=== PATIENT | female | born 1945 | race Caucasian/White ===

== ENCOUNTER → 2016-04-09 | Outpatient (CLI) | payer BC ==
[~2016-04-09] MED LIST: ACET-1138 PO; ASPEC81 PO; ASPI-435; BUPR150T7 PO; Bystolic PO; CLB/200 PO; CLB200 PO; CLC100 PO; CLON1TAB3 PO; ESCI10TA17 PO; FOLI1TAB7 PO; HYDR500C3 PO; ONDA8TAB6 PO; OXYSR10 PO; PRLSR20 PO; RXC5 PO; TRAM-10 PO; VSC/5 PO; [UNRECOGNIZED DRUG - CODE] PO; asthmanex
[2016-04-09 13:36] LABS: BASO % 0.4 %; BASO ABS # 0.02 K/uL (0-0.2); EOS % 1.4 %; HEMATOCRIT 37.5 % (37-47); IG% 0.4 %; LYMPH % 17.8 %; LYMPH ABS # 0.91 K/uL (1.2-3.4); MEAN CELL VOLUME 112.3 fL (80-100); MEAN CORPUSCULAR HEMOGLOBIN 38.3 pg (25-34); MEAN CORPUSCULAR HGB CONC 34.1 g/dl (32-36); MEAN PLATELET VOLUME 9.4 fL (7.4-10.4); MONO % 5.7 %; NEUT % 74.3 %; PLATELET COUNT 538 K/uL (130-400); RED BLOOD COUNT 3.34 M/uL (4.2-5.4); WHITE BLOOD COUNT 5.11 K/uL (4.8-10.8)
[2016-04-09 13:49] LABS: PARTIAL THROMBOPLASTIN RATIO 1.2; PROTHROMBIN TIME (PATIENT) 10.4 SECONDS (9.0-12.0)
--- NOTE | 2016-04-09 14:03 | DIAGNOSTIC IMAGING REPORT ---
TWO VIEW CHEST CLINICAL HISTORY: Preoperative examination. FINDINGS: PA and lateral chest radiographs are compared to study dated 01/20/2008. The heart is mildly enlarged and there is atherosclerotic calcification of the thoracic aorta. The pulmonary vasculature is noncongested. There is mild elevation of the right hemidiaphragm and bibasilar atelectasis. The lungs and pleural spaces are otherwise clear. There is no pneumothorax. The skeletal structures are osteopenic. The bony thorax appears intact. IMPRESSION: Mild cardiac enlargement with no active disease in the chest. Electronically signed by: Natan Felix M.D. 04/09/2016 2:01 PM Dictated Date/Time: 04/09/2016 2:01 PM
[2016-04-09 14:04] LABS: BLOOD UREA NITROGEN 20 mg/dl (7-18); BUN/CREATININE RATIO 17.7 (10-20); CALCIUM 9.2 mg/dl (8.5-10.1); CARBON DIOXIDE 28 mmol/L (21-32); CHLORIDE 107 mmol/L (98-107); GLUCOSE 98 mg/dl (70-99); POTASSIUM 4.1 mmol/L (3.5-5.1); SODIUM 142 mmol/L (136-145)
[2016-04-09 14:14] LABS: COMPLETE YES; OVALOCYTES 2+
[2016-04-09 14:26] LABS: ESTIMATED AVERAGE GLUCOSE 82 mg/dl; HA1C FLAG Normal (Normal)
== END | disposition home or self-care (01) ==
LOC: C.RAD 12:53
PROVIDERS: ATTEND Orthopaedic Surgery
DX: Z01.812 Encounter for preprocedural laboratory examination (principal); Z79.899 Other long term (current) drug therapy; I51.7 Cardiomegaly

== ENCOUNTER 2016-04-13 06:57 | Inpatient (IN) | payer BC, OTHER ==
--- NOTE | 2016-04-12 17:45 | HISTORY & PHYSICAL EXAMINATION ---
DATE OF ADMISSION: 04/13/2016 HISTORY OF PRESENT ILLNESS: The patient presents for complaints of ongoing pain attributable to her right knee with severe end-stage tricompartmental degenerative joint disease. She is a 71-year-old white female, 5 feet 1 inch, 185 pounds with complaints of ongoing pain about her right knee. She has been nonresponsive to conservative therapy including physical therapy, anti-inflammatories, relative rest, activity modification and presents for total knee arthroplasty. PAST MEDICAL HISTORY: Significant for hypertension, asthma, anxiety. PAST SURGICAL HISTORY: Otherwise unremarkable. MEDICATIONS: Include Ultram 50 mg p.o. daily, Celebrex in the morning, Wellbutrin-SR 150 mg p.o. q.a.m., Klonopin 1 mg at bedtime. FAMILY HISTORY: Unremarkable and noncontributory. SOCIAL HISTORY: The patient denies history of smoking, drinking, alcohol use or recreational drug use. PAST SURGICAL HISTORY: Significant for colon resection, repair of a torn meniscus and vaginal tubal as well as appendectomy. REVIEW OF SYSTEMS: Otherwise unremarkable. See history of present illness for pertinent positives. PHYSICAL EXAMINATION: GENERAL: Reveals a very pleasant 71-year-old white female with the above findings noted. HEENT: Otherwise unremarkable. HEART: Regular at 72 beats per minute. No murmurs noted. LUNGS: Clear without rales, rhonchi, or wheezes noted. ABDOMEN: Soft, nontender, nondistended. Bowel sounds are present in all 4 quadrants. RECTAL: No rectal examination was performed. MUSCULOSKELETAL: Consistent with that of severe end-stage, right knee. ASSESSMENT: End-stage degenerative joint disease. PLAN: Total knee arthroplasty, postoperative pain management, DVT prophylaxis, antibiotics as necessary.
[~2016-04-13] VITALS: Ht 154.9 cm; Wt 83.9 kg
[2016-04-13] VITALS (8 sets, daily range): BP systolic 95–149; BP diastolic 59–81; PULSE 72–94; TEMP 36.6–37; O2SAT 92–98; Ht 154.9 cm; Wt 83.9 kg
[~2016-04-13 06:57] MED LIST changes: -ACET-1138 PO; +ACETAMINOPHEN 500 MG TAB PO SCH; -ASPEC81 PO; -ASPI-435; +BUPIVACAINE 0.25% 30 ML VIAL ONE; +BUPIVACAINE 0.5 % 5 MG/1 ML PF 10ML VIAL ONE; +BUPIVACAINE LIPOSOME 266 MG, BUPIVACAINE/EPINEPHRINE INJ 50 ML, SODIUM CHLORIDE 0.9% PF... INFIL SCH; -BUPR150T7 PO; +CEFAZOLIN 2000 MG/60 ML D5W 60 ML IV SCH; -CLB/200 PO; -CLB200 PO; -CLC100 PO; -CLON1TAB3 PO; +CeleBREX 200 MG CAP PO SCH; +DEXAMETHASONE 4 MG TAB PO SCH; -ESCI10TA17 PO; -FOLI1TAB7 PO; +GABAPENTIN 300 MG CAP PO SCH; -HYDR500C3 PO; +LACTATED RINGER'S 1000ML 1,000 ML IV SCH; -ONDA8TAB6 PO; -OXYSR10 PO; +PATIENT'S HEIGHT AND/OR WEIGHT NEEDED SCH; -RXC5 PO; -VSC/5 PO; -asthmanex
--- NOTE | 2016-04-13 07:13 | History & Physical Bridge Note ---
H&P Re-Evaluation Bridge Note: I have examined the patient, reviewed the History & Physical and in the interval since the performance of the History & Physical I have noted the following changes of clinical significance: No changes noted
[2016-04-13] MEDS ORDERED: MIDAZOLAM HCL 1 MG/ML 2ML VIAL ONE ×3 (07:48→09:57)
[2016-04-13] MEDS ORDERED: FENTANYL CITRATE INJ 50 MCG/1 ML 2 ML VIAL ONE (07:48)
[2016-04-13] MEDS ORDERED: VSC/5 PO (07:57)
[2016-04-13] MEDS ORDERED: asthmanex (08:03)
[2016-04-13] MEDS ORDERED: BUPR150T7 PO (08:03)
[2016-04-13] MEDS ORDERED: HYDR500C3 PO (08:03)
[2016-04-13] MEDS ORDERED: FOLI1TAB7 PO (08:03)
[2016-04-13] MEDS ORDERED: CLON1TAB3 PO (08:03)
[2016-04-13] MEDS ORDERED: ESCI10TA17 PO (08:03)
[2016-04-13 08:04] LABS: HEMATOCRIT 35.4 % (37-47); MEAN CELL VOLUME 111.7 fL (80-100); MEAN CORPUSCULAR HEMOGLOBIN 37.9 pg (25-34); MEAN PLATELET VOLUME 9.1 fL (7.4-10.4); PLATELET COUNT 531 K/uL (130-400); RED BLOOD COUNT 3.17 M/uL (4.2-5.4); WHITE BLOOD COUNT 4.34 K/uL (4.8-10.8)
[2016-04-13 08:09] LABS: MEAN CORPUSCULAR HGB CONC 33.9 g/dl (32-36)
[2016-04-13] MEDS ORDERED: ASPI-435 (08:31)
[2016-04-13] MEDS ORDERED: CLB/200 PO (08:53)
[2016-04-13] MEDS ORDERED: NURSING VERBAL MED ORDER STA (09:00)
[2016-04-13] MEDS ORDERED: FAMOTIDINE 20 MG TAB ONE (09:07)
[2016-04-13] MEDS ORDERED: METOCLOPRAMIDE HCL 10 MG TAB PO ONE (09:07)
[2016-04-13] MEDS ORDERED: LACTATED RINGER'S 1000ML 1,000 ML IV PRN (09:10)
[2016-04-13] MEDS ORDERED: ONDANSETRON INJ 2 MG/ML 2 ML VIAL IV PRN (09:15)
[2016-04-13] MEDS ORDERED: FENTANYL CITRATE INJ 50 MCG/1 ML 2 ML VIAL IV PRN (09:15)
[2016-04-13] MEDS ORDERED: ORTHO JOINT ANESTHETIC ONE (09:26)
[2016-04-13] MEDS ORDERED: ROPIVACAINE 5MG/ML 30 ML 150 MG, BUPIVACAINE/EPINEPHR 0.5% MPF 30 ML, KETOROLAC TROMETH... INFIL SCH ×7 (09:30)
[2016-04-13] MEDS ORDERED: NEBIVOLOL HCL 5 MG TAB PO ONE (09:30)
[2016-04-13] MEDS ORDERED: NURSING VERBAL MED ORDER ONE (10:15)
[2016-04-13] MEDS ORDERED: PROPOFOL IV EMULSION 10 MG/ML 20 ML VIAL IV ONE (10:17)
[2016-04-13] MEDS ORDERED: POVIDONE-IODINE OP SOLN 30 ML BTL TOP ONE (10:30)
[2016-04-13] MEDS ORDERED: BACITRACIN 50000 UNIT VIAL IR ONE (10:30)
--- NOTE | 2016-04-13 10:47 | [facility] Post Operative Brief Note ---
Immediate Operative Summary Operative Date Apr 13, 2016. Pre-Operative Diagnosis Right knee degenerative joint disease Post-Operative Diagnosis Right knee degenerative joint disease Procedure(s) Performed Right Total Knee Arthroplasty Cemented Surgeon Dr. Jonh Cruz Hearing Aid Consultant Surgeon(s) Richard West PA-C Estimated Blood Loss 10 ml Findings severe djd rt knee Specimens A. right knee bone and tissue Complication(s) None Disposition Recovery Room / PACU
--- NOTE | 2016-04-13 11:07 | OPERATIVE REPORT ---
DATE OF OPERATION: 04/13/2016 PREOPERATIVE DIAGNOSIS: Severe end-stage tricompartmental degenerative joint disease, right knee. POSTOPERATIVE DIAGNOSIS: Same. PROCEDURE: Right total knee arthroplasty utilizing Journey II nonblock total knee arthroplasty, size 3 femur, 3 tibia, 11 poly, 29 round patella. SURGEON: Dr. Cruz. GAS APPLIANCE REPAIRER: Richard West, who was necessary for prepping, draping, retraction, and wound closure of deep fascia, subQ, and skin and was necessary for the case. ESTIMATED BLOOD LOSS: 10 mL. COMPLICATIONS: None. HISTORY OF PRESENT ILLNESS: The patient is a 71-year-old white female who presents after failing attempts at conservative management for right total knee arthroplasty. OPERATION AND FINDINGS: PROCEDURE: The patient was properly prepped and draped in supine position for total knee arthroplasty after identifying the appropriate surgical site. An anterior midline incision was made through the subcutaneous tissues down to the region of the extensor mechanism. A medial parapatellar incision was subsequently made. Meticulous hemostasis was obtained and performed at all times. The patella having been subluxed lateralward, medial and lateral meniscal remnants were excised. The patellar cut was then initially made and was sized to the appropriate size. After subluxing the tibia forward the appropriate meniscal fragments having been removed the distal femur was then cut first utilizing a Hawk \T\ Nephew Journey II nonblock. The distal femoral cuts and chamfer cuts were all made under direct visualization and the proximal tibial osteotomy cut was also made utilizing Hawk \T\ Nephew Journey II nonblock and checked with an extramedullary guide. The appropriate trial components on the femur and tibia were placed. Appropriate trial spacers were used to check flexion and extension gaps. With flexion and extension gaps being equal, the components were then subsequently after thorough irrigation and debridement lavage components were then subsequently cemented in the following order: size 3 femur, 3 tibia, 11 poly and 29 round patella. Exparel was used for intraoperative anesthesia, the medial parapatellar incision was closed utilizing #1 Vicryl, subQ was closed with 2-0 Vicryl, skin was closed with skin clips. A sterile compression dressing was placed. The patient was taken to recovery room in stable condition. Due to the complex nature of the procedure, the entire surgery was performed with the operational assistance of Richard West PA-C. The esl instructional assistant, under direct supervision, was involved in the actual performance of all aspects of the surgical procedure including hemostasis, tissue retraction and incision, instrument management, patient positioning, and wound closure. I attest to the content of the Intraoperative Record and any orders documented therein. Any exceptio ns are noted below.
[2016-04-13] MEDS ORDERED: ALUMINUM/MAGNESIUM/SIMETH (MAALOX MAX) 30 ML UDC PO PRN (11:30)
[2016-04-13] MEDS ORDERED: MAGNESIUM HYDROXIDE SUSP 30 ML UDC PO PRN (11:30)
[2016-04-13] MEDS ORDERED: MoRPHine SULFATE 2 MG/ML CARP IV PRN (11:30)
[2016-04-13] MEDS ORDERED: SOD PHOSPHATE/SOD BIPHOSPHATE ENEMA 132 ML BTL PR PRN (11:30)
[2016-04-13] MEDS ORDERED: BISACODYL 10 MG SUPP PR PRN (11:30)
--- NOTE | 2016-04-13 12:12 | DIAGNOSTIC IMAGING REPORT ---
TWO VIEWS RIGHT KNEE CLINICAL HISTORY: Postoperative examination. FINDINGS: AP and crosstable lateral portable views of the right knee are obtained. A right knee arthroplasty is in near anatomic alignment. There has been undersurface remodeling of the patella. No acute fracture is seen. There are expected postoperative changes around the knee including skin clips, a surgical drain, soft tissue edema, and subcutaneous gas. IMPRESSION: Expected postoperative changes status post right knee arthroplasty. No acute fracture is seen. Electronically signed by: Natan Felix M.D. 04/13/2016 12:10 PM Dictated Date/Time: 04/13/2016 12:10 PM
--- NOTE | 2016-04-13 12:20 | Anesthesiology Progress Note ---
Anesthesia Post Op Note Date & Time Apr 13, 2016 at 12:19 Vital Signs Pain Intensity: 0 Vital Signs Past 12 Hours Date Time Temp Pulse Resp B/P Pulse Ox O2 Delivery O2 Flow Rate FiO2 04/13/16 12:10 36.5 73 20 120/64 97 Nasal Cannula 2 04/13/16 12:00 65 16 115/71 98 Nasal Cannula 2 04/13/16 11:50 72 16 120/61 97 Nasal Cannula 2 04/13/16 11:40 76 16 114/59 98 Nasal Cannula 2 04/13/16 11:30 78 16 111/64 94 Nasal Cannula 2 04/13/16 11:24 36.7 78 16 119/61 96 Nasal Cannula 2 04/13/16 08:03 36.9 80 20 149/80 94 Room Air Notes Mental Status: alert / awake / arousable, participated in evaluation Pt Amnestic to Procedure: Yes Nausea / Vomiting: adequately controlled Pain: adequately controlled Airway Patency, RR, SpO2: stable & adequate BP & HR: stable & adequate Hydration State: stable & adequate Neuraxial Anesthesia: was administered, sensory block is resolving Anesthetic Complications: no major complications apparent
[2016-04-13] MEDS: TRANEXAMIC ACID AMP 1,000 MG in NSS 100ML IV SCH (13:34)
[2016-04-13] MEDS ORDERED: MoRPHine SULFATE 4 MG/ML 1 ML CARP\\VIAL IV PRN (13:45)
[2016-04-13] MEDS ORDERED: MoRPHine SULFATE 10 MG/ML CARP/VIAL IV PRN (13:45)
[2016-04-13] MEDS: D5W AND 1/2NSS + 20MEQ KCL 1,000 ML IV SCH ×2 (13:53→23:21)
[2016-04-13] MEDS: ACETAMINOPHEN 500 MG TAB PO SCH ×2 (13:54→21:39)
[2016-04-13] MEDS: VESICARE - ORDER AWAITING ACTION SCH (15:14)
[2016-04-13] MEDS: CEFAZOLIN IV 2,000 MG in DEXTROSE 5% 50ML 50 ML IV SCH (17:48)
[2016-04-13] MEDS: OXYCODONE HCL IR 5 MG TAB (IMMEDIATE RELEASE) PO PRN (19:09)
[2016-04-13] MEDS: ASPIRIN 81 MG ECTAB PO SCH (20:58)
[2016-04-13] MEDS: CLONAZEPAM 1 MG TAB PO SCH (20:58)
[2016-04-13] MEDS: DOCUSATE SODIUM 100 MG CAP PO SCH (20:58)
[2016-04-13] MEDS: OXYCODONE HCL 10 MG TABCR (OXYCONTIN) PO SCH (20:59)
[2016-04-13] MEDS: CeleBREX 200 MG CAP PO SCH (20:59)
[2016-04-13] MEDS: SENNA 8.6 MG TAB PO SCH (20:59)
[2016-04-14] MEDS: CEFAZOLIN IV 2,000 MG in DEXTROSE 5% 50ML 50 ML IV SCH (02:01)
[2016-04-14] MEDS: OXYCODONE HCL IR 5 MG TAB (IMMEDIATE RELEASE) PO PRN ×4 (02:07→23:22)
[2016-04-14 03:55] VITALS: BP 107/69; PULSE 79; TEMP 36.7; O2SAT 94
[2016-04-14] MEDS: ACETAMINOPHEN 500 MG TAB PO SCH ×3 (05:26→21:28)
[2016-04-14 05:49] LABS: HEMATOCRIT 28.9 % (37-47); MEAN CORPUSCULAR HGB CONC 33.9 g/dl (32-36); MEAN PLATELET VOLUME 9.2 fL (7.4-10.4); PLATELET COUNT 495 K/uL (130-400); RED BLOOD COUNT 2.58 M/uL (4.2-5.4); WHITE BLOOD COUNT 7.03 K/uL (4.8-10.8)
[2016-04-14 05:58] LABS: PROTHROMBIN TIME (PATIENT) 10.4 SECONDS (9.0-12.0)
[2016-04-14 06:25] LABS: BUN/CREATININE RATIO 10.4 (10-20); CALCIUM 8.3 mg/dl (8.5-10.1); CREATININE 0.97 mg/dl (0.60-1.20); POTASSIUM 4.1 mmol/L (3.5-5.1)
--- NOTE | 2016-04-14 07:06 | Orthopedic Progress Note ---
Orthopedic Progress Note Date of Service Apr 14, 2016. Subjective Post OP Day: 1 (s/p Right TKA) Reports: feeling well, pain controlled w PO medications, Denies: SOB, calf pain , chest pain, complaints, light headedness, nausea / vomiting Objective calves soft nontender, N/V intact, capillary refill less than 2 sec., dressing C /D/I, A&O x3, toes mobile, hemovac drainage (100cc/8 hours) Date Time Temp Pulse Resp B/P Pulse Ox O2 Delivery O2 Flow Rate FiO2 04/14/16 03:55 36.7 79 18 107/69 94 Room Air 04/13/16 23:40 36.7 94 18 136/79 95 Room Air 04/13/16 23:20 Room Air 04/13/16 18:58 37.0 94 16 120/67 92 Room Air 04/13/16 16:00 36.6 83 16 95/59 98 Nasal Cannula 2.0 04/13/16 15:15 Nasal Cannula 2.0 04/13/16 15:04 37.0 85 16 107/61 96 2.0 04/13/16 14:13 36.7 82 16 103/64 98 3.0 04/13/16 13:30 72 16 104/68 96 2.0 04/13/16 13:00 37.0 77 14 144/81 97 Nasal Cannula 2.0 04/13/16 13:00 Nasal Cannula 2.0 04/13/16 13:00 Nasal Cannula 2.0 04/13/16 12:30 36.5 69 20 120/61 96 Nasal Cannula 2 04/13/16 12:20 36.5 71 20 106/61 96 Nasal Cannula 2 04/13/16 12:10 36.5 73 20 120/64 97 Nasal Cannula 2 04/13/16 12:00 65 16 115/71 98 Nasal Cannula 2 04/13/16 11:50 72 16 120/61 97 Nasal Cannula 2 04/13/16 11:40 76 16 114/59 98 Nasal Cannula 2 04/13/16 11:30 78 16 111/64 94 Nasal Cannula 2 04/13/16 11:24 36.7 78 16 119/61 96 Nasal Cannula 2 04/13/16 08:03 36.9 80 20 149/80 94 Room Air Laboratory Results 24 Hours: Test 04/13/16 07:52 1/11/17 05:13 Hematocrit 35.4 % 28.9 % Hemoglobin 12.0 g/dL 9.8 g/dL Prothromb Time International Ratio 1.0 Prothrombin Time 10.4 SECONDS Assessment & Plan Assessment: POD #1 s/p right tka -pt/ot -dvt proph with allie/scd/asa -silverlon dressing -plan for d/c home with HHPT when stable Discharge Planning Discharge Planning: home with home health DVT Prophylaxis: TEDs, SCDs, ASA Therapy: Physical Therapy
[2016-04-14] MEDS: VESICARE - ORDER AWAITING ACTION SCH ×3 (07:24→15:18)
--- NOTE | 2016-04-14 07:50 | Discharge Instructions ---
Discharge Instructions Admission Reason for Admission: Right Knee Degenerative Joint Disease Discharge Discharge Diagnosis / Problem: right total knee replacement Discharge Goals Goal(s): Decrease discomfort, Improve function, Increase independence Activity Recommendations Activity Limitations: as noted below Weightbearing Status: Right weightbearing (as tolerated) . Instructions / Follow-Up Instructions / Follow-Up ACTIVITY RECOMMENDATIONS: SELF CARE INSTRUCTIONS AFTER TOTAL KNEE REPLACEMENT A. You may need to continue a physical therapy program after discharge from the hospital. There are several options available to you. Your doctor will assist you in selecting the best one for you. 1. An out-patient facility 2 to 3 times a week for therapy or home therapy. 2. Continue working on all exercises taught to you in the hospital. Your goals should be to increase bending of your knee to 90 degrees and beyond and to fully straighten your knee. B. You may progress at your own pace from walking with a walker or crutches to a cane; then to no assistive devices. C. Make walking a part of your daily routine. Be up as much as comfortable with rest periods throughout the day. Rest with leg elevation is very important. Use the ice wrap frequently for the first 3-4 weeks. D. There are no restrictions on activities. You may ride in a car, shop, participate in security messenger and all social activities. E. Wear the long elastic stockings (HARINI hose) 20 hours a day for 2 weeks after surgery. They can be removed several times a day for laundering and for a bath. F. You may shower, no tub baths until cleared by your doctor. SPECIAL CARE INSTRUCTIONS: VERY IMPORTANT TO READ AND REVIEW A. There are a few signs you need to watch for after you are home. Call [facility] [place] if you notice any of the followin. Increased severe knee pain. Some pain is expected especially when you exercise. 2. Increased swelling in your leg or knee; pain or swelling of the calf muscle in either lower leg. 3. Any fluid drainage from the incision. 4. Shortness of breath or chest pain. B. Please call [facility] [place] at if you have any concerns or questions about your operation or recovery. The doctor or his nurse will return your call promptly. C. You must take antibiotics before dental work, bladder, bowel or other surgery. Your doctor will provide you with a permanent care to carry describing this precaution. IMPORTANT: * REMEMBER TO TAKE ASPIRIN, 81 MG, TWICE DAILY FOR 4 WEEKS UNLESS OTHERWISE DIRECTED. THIS IS YOUR BLOOD THINNER. * HIGH RISK PATIENTS MAY BE PRESCRIBED A STRONGER BLOOD THINNER. THIS WILL BE PROVIDED AT DISCHARGE. * CALL IF INCREASED PAIN, REDNESS, DRAINAGE OR FEVER GREATER THAT 101. * WEAR HARINI HOSE 20 HOURS PER DAY FOR 2 WEEKS. * YOU MAY HAVE A LARGE BAND-AID LIKE DRESSING (SILVERON). THIS WILL REMAIN ON YOUR INCISION FOR 7 DAYS, THEN CAN BE REMOVED. IF INCISION IS LEAKING THROUGH DRESSING, CALL THE OFFICE . FOLLOW UP VISIT: If appointment is not already scheduled: Please call [facility] [place] to make a follow-up appointment for 2 weeks after your surgery at . Current Hospital Diet Patient's current hospital diet: Regular Diet Discharge Diet Recommended Diet: Regular Diet Procedures Procedures Performed: Right Total Knee Arthroplasty Cemented Pending Studies Studies pending at discharge: no Laboratory Results Hemoglobin A1c Test 04/09/16 13:05 Range/Units Estimated Average Glucose 82 mg/dl Hemoglobin A1c 4.5 4.5-5.6 % Medical Emergencies . Who to Call and When: Medical Emergencies: If at any time you feel your situation is an emergency, please call [phone] immediately. . Non-Emergent Contact Non-Emergency issues call your: Primary Care Provider, Surgeon . "Provider Documentation" section prepared by Richard West. VTE Core Measure Inpt VTE Proph given/why not?: Other Anticoagulation (ASA 81mg po bid x 1month) , T.E.D. Stockings, SCD's
[2016-04-14 07:58] VITALS: BP 111/69; PULSE 62; TEMP 36.6; O2SAT 96
[2016-04-14] MEDS: D5W AND 1/2NSS + 20MEQ KCL 1,000 ML IV SCH (08:27)
[2016-04-14] MEDS: MULTIVITAMIN TAB PO SCH (08:58)
[2016-04-14] MEDS: BuPROPion SR 150 MG TABCR PO SCH (08:58)
[2016-04-14] MEDS: ASPIRIN 81 MG ECTAB PO SCH ×2 (08:58→20:51)
[2016-04-14] MEDS: NEBIVOLOL HCL 5 MG TAB PO SCH (08:58)
[2016-04-14] MEDS: PANTOprazole SOD 40 MG TAB PO SCH (08:58)
[2016-04-14] MEDS: ESCITALOPRAM OXALATE 10 MG TAB PO SCH (08:58)
[2016-04-14] MEDS: DOCUSATE SODIUM 100 MG CAP PO SCH ×2 (08:58→20:46)
[2016-04-14] MEDS: OXYCODONE HCL 10 MG TABCR (OXYCONTIN) PO SCH ×2 (08:59→20:52)
[2016-04-14] MEDS: CeleBREX 200 MG CAP PO SCH ×2 (08:59→20:52)
[2016-04-14] MEDS ORDERED: HYDROXYUREA 500 MG CAP PO SCH ×2 (09:00→21:00)
[2016-04-14] MEDS ORDERED: NURSING VERBAL MED ORDER ONE ×2 (09:15→21:15)
--- NOTE | 2016-04-14 10:13 | Anesthesiology Progress Note ---
Anesthesia Post Op Note Date & Time Apr 14, 2016 at 10:12 Vital Signs Pain Intensity: 8.0 Vital Signs Past 12 Hours Date Time Temp Pulse Resp B/P Pulse Ox O2 Delivery O2 Flow Rate FiO2 04/14/16 07:58 36.6 62 16 111/69 96 Room Air 04/14/16 07:35 Room Air 04/14/16 03:55 36.7 79 18 107/69 94 Room Air 04/13/16 23:40 36.7 94 18 136/79 95 Room Air 04/13/16 23:20 Room Air Notes Mental Status: alert / awake / arousable, participated in evaluation Pt Amnestic to Procedure: Yes Nausea / Vomiting: adequately controlled Pain: adequately controlled Airway Patency, RR, SpO2: stable & adequate BP & HR: stable & adequate Hydration State: stable & adequate Neuraxial Anesthesia: sensory block resolved Anesthetic Complications: no major complications apparent
[2016-04-14 11:20] VITALS: BP 122/62; PULSE 61; TEMP 36.4; O2SAT 96
[2016-04-14 15:00] VITALS: BP 112/62; PULSE 60; TEMP 37; O2SAT 94
[2016-04-14] MEDS: SENNA 8.6 MG TAB PO SCH (20:46)
[2016-04-14] MEDS: CLONAZEPAM 1 MG TAB PO SCH (20:52)
[2016-04-14] MEDS ORDERED: HYDROXYUREA 500 MG CAP PO STA (21:17)
[2016-04-14 22:52] VITALS: BP 102/65; PULSE 62; TEMP 36.9; O2SAT 95
[2016-04-15] MEDS: ACETAMINOPHEN 500 MG TAB PO SCH ×3 (05:28→21:48)
[2016-04-15] MEDS: VESICARE - ORDER AWAITING ACTION SCH ×3 (06:56→16:39)
--- NOTE | 2016-04-15 06:56 | Orthopedic Progress Note ---
Orthopedic Progress Note Date of Service Apr 15, 2016. Subjective Post OP Day: 2 Reports: feeling well, pain controlled w PO medications, Denies: SOB, calf pain , chest pain, complaints, light headedness, nausea / vomiting Objective calves soft nontender, N/V intact, capillary refill less than 2 sec., dressing C /D/I (silverlon intact), A&O x3, toes mobile Date Time Temp Pulse Resp B/P Pulse Ox O2 Delivery O2 Flow Rate FiO2 04/14/16 23:13 Room Air 04/14/16 22:52 36.9 62 16 102/65 95 Room Air 04/14/16 15:15 Room Air 04/14/16 15:00 37.0 60 16 112/62 94 Room Air 04/14/16 11:20 36.4 61 16 122/62 96 Room Air 04/14/16 07:58 36.6 62 16 111/69 96 Room Air 04/14/16 07:35 Room Air Assessment & Plan Assessment: POD #2 s/p right tka -pt/ot -dvt proph with allie/scd/asa -silverlon dressing -plan for d/c home with HHPT when stable Plan: [id number] ADDENDUM: Pt c/o uncontrolled pain in the knee which is her biggest complaint. She also states she did not feel well earlier and had an episode of diarrhea. The last time was around 11AM this morning. She is feeling better now in that aspect but she feels that her pain is not controlled at this time. We will plan on adjusting her pain meds and cancelling her discharge order. Will recheck labs as well. TB Discharge Planning Discharge Planning: home with home health DVT Prophylaxis: TEDs, SCDs, ASA Therapy: Physical Therapy
[2016-04-15] MEDS ORDERED: ACET-1138 PO (07:04)
[2016-04-15] MEDS ORDERED: ASPEC81 PO (07:05)
[2016-04-15] MEDS ORDERED: ONDA8TAB6 PO (07:05)
[2016-04-15] MEDS ORDERED: OXYSR10 PO (07:05)
[2016-04-15] MEDS ORDERED: CLC100 PO (07:05)
[2016-04-15] MEDS ORDERED: RXC5 PO (07:05)
[2016-04-15] MEDS ORDERED: CLB200 PO (07:05)
[2016-04-15 07:08] VITALS: BP 102/60; PULSE 72; TEMP 36.4; O2SAT 94
--- NOTE | 2016-04-15 07:13 | Discharge Summary ---
Orthopedic Discharge Summary Admission Date/Reason Apr 13, 2016 at 08:24 Right Knee Degenerative Joint Disease. Discharge Date/Disposition Apr 15, 2016 Home with services Diagnosis Principal Diagnosis: s/p Right TKA Procedure(s) Performed Right Total Knee Replacement Consultations NONE Medication Reconciliation New Medications: Ondansetron Hcl (Zofran) 8 Mg Tab 8 MG PO Q8 PRN for Nausea, #20 TAB Acetaminophen (Tylenol Extra Strength) 500 Mg Tab 1000 MG PO Q8, #126 TAB Aspirin (Aspirin EC Low Dose) 81 Mg Ectab 81 MG PO BID for 30 Days Celecoxib (Celebrex) 200 Mg Cap 200 MG PO BID, #60 CAP Docusate Sodium (Docusate Sodium) 100 Mg Cap 100 MG PO BID for 15 Days, #30 CAP Oxycodone HCl (Oxycontin) 10 Mg Tabcr 10 MG PO Q12, #20 Oxycodone HCl (Oxycodone HCl) 5 Mg Tab 5-10 MG PO Q4H PRN for Pain, #90 TAB Continued Medications: Bupropion Hcl (Wellbutrin Sr) 150 Mg Tab 150 MG PO, TAB Clonazepam (Klonopin) 1 Mg Tab 1 MG PO HS, TAB Escitalopram (Lexapro) 10 Mg Tab 10 MG PO DAILY, TAB Folic Acid (Folvite) 1 Mg Tab 1 TAB PO DAILY for 90 Days, #90 TAB 1 Refill Hydroxyurea (Hydrea Cap) 500 Mg Cap 500 MG PO DAILY, CAP Omeprazole (Prilosec) 20 Mg Capcr 20 MG PO DAILY, 0 Refills Solifenacin (Vesicare) 5 Mg Tab 5 MG PO DAILY, TAB [asthmanex] () 1 PUFF DAILY [Bystolic] () 5 MG PO DAILY, 0 Refills Discontinued Medications: Aspirin (Aspirin 81) 81 Mg Tab DAILY Celecoxib (CeleBREX) 200 Mg Cap 1 CAP PO DAILY for 30 Days, #30 CAP 2 Refills Tramadol (Ultram) 50 Mg Tab 50 MG PO Q4HR, 0 Refills PRN PAIN Admission Physical Exam As per Admitting History & Physical. Hospital Course Patient was a same day admission after undergoing a successful right TKA. she tolerated the procedure well. Post-operatively, her activity was progressed and well tolerated. Please refer to daily progress notes and PT notes for complete details. After exam on 04/15/16, patient felt to be stable for discharge home with home health PT. Patient will f/u in the office in 2 weeks for further evaluation including x-rays and incision check, sooner if having any issues or concerns. Below are pertinent labs/studies during their hospital stay: Last Resulted CBC 04/14/16 05:13 Last Resulted BMP 04/14/16 05:13 Last Vital Signs Documentation Date Time Temp Pulse Resp B/P Pulse Ox O2 Delivery O2 Flow Rate FiO2 04/15/16 07:08 36.4 72 17 102/60 94 Room Air 04/13/16 16:00 2.0 Discharge Instructions ACTIVITY RECOMMENDATIONS: SELF CARE INSTRUCTIONS AFTER TOTAL KNEE REPLACEMENT A. You may need to continue a physical therapy program after discharge from the hospital. There are several options available to you. Your doctor will assist you in selecting the best one for you. 1. An out-patient facility 2 to 3 times a week for therapy or home therapy. 2. Continue working on all exercises taught to you in the hospital. Your goals should be to increase bending of your knee to 90 degrees and beyond and to fully straighten your knee. B. You may progress at your own pace from walking with a walker or crutches to a cane; then to no assistive devices. C. Make walking a part of your daily routine. Be up as much as comfortable with rest periods throughout the day. Rest with leg elevation is very important. Use the ice wrap frequently for the first 3-4 weeks. D. There are no restrictions on activities. You may ride in a car, shop, participate in gear generator set up operator and all social activities. E. Wear the long elastic stockings (HARINI hose) 20 hours a day for 2 weeks after surgery. They can be removed several times a day for laundering and for a bath. F. You may shower, no tub baths until cleared by your doctor. SPECIAL CARE INSTRUCTIONS: VERY IMPORTANT TO READ AND REVIEW A. There are a few signs you need to watch for after you are home. Call [facility] [place] if you notice any of the followin. Increased severe knee pain. Some pain is expected especially when you exercise. 2. Increased swelling in your leg or knee; pain or swelling of the calf muscle in either lower leg. 3. Any fluid drainage from the incision. 4. Shortness of breath or chest pain. B. Please call [facility] at if you have any concerns or questions about your operation or recovery. The doctor or his nurse will return your call promptly. C. You must take antibiotics before dental work, bladder, bowel or other surgery. Your doctor will provide you with a permanent care to carry describing this precaution. IMPORTANT: * REMEMBER TO TAKE ASPIRIN, 81 MG, TWICE DAILY FOR 4 WEEKS UNLESS OTHERWISE DIRECTED. THIS IS YOUR BLOOD THINNER. * HIGH RISK PATIENTS MAY BE PRESCRIBED A STRONGER BLOOD THINNER. THIS WILL BE PROVIDED AT DISCHARGE. * CALL IF INCREASED PAIN, REDNESS, DRAINAGE OR FEVER GREATER THAT 101. * WEAR HARINI HOSE 20 HOURS PER DAY FOR 2 WEEKS. * YOU MAY HAVE A LARGE BAND-AID LIKE DRESSING (SILVERON). THIS WILL REMAIN ON YOUR INCISION FOR 7 DAYS, THEN CAN BE REMOVED. IF INCISION IS LEAKING THROUGH DRESSING, CALL THE OFFICE . FOLLOW UP VISIT: If appointment is not already scheduled: Please call [facility] [place] to make a follow-up appointment for 2 weeks after your surgery at .
[2016-04-15] MEDS: DOCUSATE SODIUM 100 MG CAP PO SCH ×2 (08:26→20:56)
[2016-04-15] MEDS: ESCITALOPRAM OXALATE 10 MG TAB PO SCH (08:26)
[2016-04-15] MEDS: MULTIVITAMIN TAB PO SCH (08:27)
[2016-04-15] MEDS: NEBIVOLOL HCL 5 MG TAB PO SCH (08:27)
[2016-04-15] MEDS: PANTOprazole SOD 40 MG TAB PO SCH (08:27)
[2016-04-15] MEDS: OXYCODONE HCL 10 MG TABCR (OXYCONTIN) PO SCH (08:27)
[2016-04-15] MEDS: BuPROPion SR 150 MG TABCR PO SCH (08:27)
[2016-04-15] MEDS: OXYCODONE HCL IR 5 MG TAB (IMMEDIATE RELEASE) PO PRN ×3 (08:28→20:15)
[2016-04-15] MEDS: ASPIRIN 81 MG ECTAB PO SCH ×2 (08:41→21:05)
[2016-04-15] MEDS: CeleBREX 200 MG CAP PO SCH ×2 (08:42→21:06)
[2016-04-15] MEDS ORDERED: HYDROXYUREA 500 MG CAP PO SCH (09:00)
[2016-04-15 09:19] VITALS: BP 102/60; PULSE 72; TEMP 36.4; O2SAT 94
[2016-04-15 11:50] VITALS: BP 115/70; PULSE 73
[2016-04-15] MEDS ORDERED: HYDROmorphone INJ 0.5 MG/0.5 ML SYR IV PRN (14:00)
[2016-04-15 15:20] VITALS: BP 97/62; PULSE 68; TEMP 36.6; O2SAT 94
[2016-04-15] MEDS: SENNA 8.6 MG TAB PO SCH (20:56)
[2016-04-15] MEDS: OXYCODONE HCL 20 MG TABCR (OXYCONTIN) PO SCH (21:05)
[2016-04-15] MEDS: CLONAZEPAM 1 MG TAB PO SCH (21:05)
[2016-04-15] MEDS: HYDROXYUREA 500 MG CAP PO SCH (21:11)
[2016-04-15 22:53] VITALS: BP 111/71; PULSE 75; TEMP 37.2; O2SAT 92
[2016-04-16] MEDS: OXYCODONE HCL IR 5 MG TAB (IMMEDIATE RELEASE) PO PRN ×2 (02:49→08:07)
[2016-04-16] MEDS: ACETAMINOPHEN 500 MG TAB PO SCH ×2 (05:59→21:14)
[2016-04-16 06:10] LABS: MEAN CELL VOLUME 112.4 fL (80-100); MEAN CORPUSCULAR HEMOGLOBIN 38.2 pg (25-34); MEAN CORPUSCULAR HGB CONC 33.9 g/dl (32-36); MEAN PLATELET VOLUME 9.2 fL (7.4-10.4); PLATELET COUNT 543 K/uL (130-400); RED BLOOD COUNT 2.49 M/uL (4.2-5.4)
[2016-04-16 06:45] LABS: BUN/CREATININE RATIO 12.2 (10-20); CALCIUM 8.6 mg/dl (8.5-10.1); CREATININE 1.1 mg/dl (0.60-1.20); POTASSIUM 3.9 mmol/L (3.5-5.1)
[2016-04-16 06:54] VITALS: BP 123/69; PULSE 81; TEMP 36.6; O2SAT 94
--- NOTE | 2016-04-16 06:59 | Orthopedic Progress Note ---
Orthopedic Progress Note Date of Service Apr 16, 2016. Subjective Post OP Day: 3 Reports: feeling well, Denies: SOB, calf pain, chest pain, light headedness, nausea / vomiting Additional Notes: States that her pain is under better control. Feeling better overall. No more episodes of diarrhea since noon yesterday. Objective calves soft nontender, N/V intact, dressing C/D/I, A&O x3, toes mobile Date Time Temp Pulse Resp B/P Pulse Ox O2 Delivery O2 Flow Rate FiO2 04/16/16 06:54 36.6 81 17 123/69 94 Room Air 04/15/16 23:15 Room Air 04/15/16 22:53 37.2 75 16 111/71 92 Room Air 04/15/16 16:00 Room Air 04/15/16 15:20 36.6 68 20 97/62 94 Room Air 04/15/16 11:50 73 04/15/16 09:19 36.4 72 17 94 Room Air 04/15/16 07:33 Room Air 04/15/16 07:08 36.4 72 17 102/60 94 Room Air Laboratory Results 24 Hours: Test 04/16/16 05:00 Hematocrit 28.0 % Hemoglobin 9.5 g/dL Assessment & Plan Assessment: POD #3 Continue PT/OT Plan for dc to home today if pain continues to remain controlled. Inhouse Planning Pain Management: Celebrex, Oxycontin, Dilaudid, PO Tylenol, Oxy IR Discharge Planning Discharge Planning: home with home health Pain Management: Oxycontin, PO Tylenol, Oxy IR DVT Prophylaxis: TEDs, SCDs, ASA Therapy: Physical Therapy
[2016-04-16] MEDS ORDERED: OXYSR10 PO (07:01)
[2016-04-16] MEDS: VESICARE - ORDER AWAITING ACTION SCH ×3 (07:36→14:50)
[2016-04-16] MEDS: BuPROPion SR 150 MG TABCR PO SCH (08:36)
[2016-04-16] MEDS: ASPIRIN 81 MG ECTAB PO SCH ×2 (08:36→21:16)
[2016-04-16] MEDS: NEBIVOLOL HCL 5 MG TAB PO SCH (08:36)
[2016-04-16] MEDS: ESCITALOPRAM OXALATE 10 MG TAB PO SCH (08:36)
[2016-04-16] MEDS: CeleBREX 200 MG CAP PO SCH ×2 (08:36→21:15)
[2016-04-16] MEDS: PANTOprazole SOD 40 MG TAB PO SCH (08:36)
[2016-04-16] MEDS: OXYCODONE HCL 20 MG TABCR (OXYCONTIN) PO SCH (08:36)
[2016-04-16] MEDS: MULTIVITAMIN TAB PO SCH (08:36)
[2016-04-16] MEDS: DOCUSATE SODIUM 100 MG CAP PO SCH ×2 (08:37→21:00)
[2016-04-16] MEDS ORDERED: HYDROCODONE/ACETAMOPHEN 5/325MG TAB PO PRN (11:45)
[2016-04-16 15:29] VITALS: BP 125/69; PULSE 74; TEMP 36.4; O2SAT 93
[2016-04-16] MEDS: ONDANSETRON INJ 2 MG/ML 2 ML VIAL IV PRN (16:40)
[2016-04-16] MEDS: TRAMADOL HCL 50 MG TAB PO PRN ×2 (17:02→21:13)
[2016-04-16] MEDS: SENNA 8.6 MG TAB PO SCH (21:00)
[2016-04-16] MEDS: CLONAZEPAM 1 MG TAB PO SCH (21:13)
[2016-04-16] MEDS: HYDROXYUREA 500 MG CAP PO SCH (21:17)
[2016-04-17] VITALS: BP 98/66; PULSE 87; TEMP 36.8; O2SAT 97
[2016-04-17] MEDS: TRAMADOL HCL 50 MG TAB PO PRN ×3 (03:46→11:59)
[2016-04-17] MEDS: ONDANSETRON INJ 2 MG/ML 2 ML VIAL IV PRN (03:49)
[2016-04-17] MEDS: ACETAMINOPHEN 500 MG TAB PO SCH (06:02)
[2016-04-17 06:50] VITALS: BP 112/71; PULSE 84; TEMP 36.7; O2SAT 94
[2016-04-17] MEDS: VESICARE - ORDER AWAITING ACTION SCH ×2 (06:54)
[2016-04-17 07:38] LABS: HEMATOCRIT 28.3 % (37-47); MEAN CELL VOLUME 114.1 fL (80-100); MEAN CORPUSCULAR HEMOGLOBIN 37.9 pg (25-34); MEAN CORPUSCULAR HGB CONC 33.2 g/dl (32-36); MEAN PLATELET VOLUME 9.1 fL (7.4-10.4); PLATELET COUNT 558 K/uL (130-400); RED BLOOD COUNT 2.48 M/uL (4.2-5.4); WHITE BLOOD COUNT 4.24 K/uL (4.8-10.8)
[2016-04-17] MEDS: DOCUSATE SODIUM 100 MG CAP PO SCH (07:49)
--- NOTE | 2016-04-17 07:51 | Orthopedic Progress Note ---
Orthopedic Progress Note Date of Service Apr 17, 2016. Subjective Post OP Day: 4 Reports: feeling well, Denies: SOB, chest pain, light headedness, nausea / vomiting, pain controlled w PO medications (States the Ultram doesn't seem to be cutting it for pain.) Objective calves soft nontender, N/V intact, capillary refill less than 2 sec., dressing C /D/I, A&O x3, toes mobile Date Time Temp Pulse Resp B/P Pulse Ox O2 Delivery O2 Flow Rate FiO2 04/17/16 06:50 36.7 84 19 112/71 94 Room Air 04/17/16 00:00 36.8 87 16 98/66 97 Room Air 04/16/16 19:15 Room Air 04/16/16 15:29 36.4 74 18 125/69 93 Room Air 04/16/16 08:25 Room Air Laboratory Results 24 Hours: Test 04/17/16 07:05 Hematocrit 28.3 % Hemoglobin 9.4 g/dL Assessment & Plan Assessment: POD #4 right TKA Continue PT/OT Plan for dc to home today if pain continues to remain controlled--Will try Oxy IR on its own since it was previously used with Oxycontin. Inhouse Planning Pain Management: Celebrex, Oxycontin, Dilaudid, PO Tylenol, Oxy IR Discharge Planning Discharge Planning: home with home health Pain Management: Oxycontin, PO Tylenol, Oxy IR DVT Prophylaxis: TEDs, SCDs, ASA Therapy: Physical Therapy
[2016-04-17] MEDS: MULTIVITAMIN TAB PO SCH (08:38)
[2016-04-17] MEDS: NEBIVOLOL HCL 5 MG TAB PO SCH (08:38)
[2016-04-17] MEDS: CeleBREX 200 MG CAP PO SCH (08:38)
[2016-04-17] MEDS: PANTOprazole SOD 40 MG TAB PO SCH (08:38)
[2016-04-17] MEDS: ESCITALOPRAM OXALATE 10 MG TAB PO SCH (08:38)
[2016-04-17] MEDS: OXYCODONE HCL IR 5 MG TAB (IMMEDIATE RELEASE) PO PRN ×2 (08:38→12:39)
[2016-04-17] MEDS: BuPROPion SR 150 MG TABCR PO SCH (08:39)
[2016-04-17] MEDS: ASPIRIN 81 MG ECTAB PO SCH (08:39)
[2016-04-17 11:25] VITALS: BP 112/71; PULSE 84; TEMP 36.7; O2SAT 94
== END 2016-04-17 13:42 | disposition home health service (06) | DRG 470 ==
LOC: ENRESERVDT → ENRESERVTM → C.ACU 06:57 → C.3E 08:24
PROVIDERS: ADMIT Orthopaedic Surgery; ATTEND Orthopaedic Surgery
PROC: 0SRC0J9 Replacement of Right Knee Joint with Synthetic Substitute, Cemented, Open Approach (ICD-10-PCS; principal; 2016-04-13 09:30)
DX: M17.11 Unilateral primary osteoarthritis, right knee (principal); J45.909 Unspecified asthma, uncomplicated; I10 Essential (primary) hypertension; F41.9 Anxiety disorder, unspecified; F32.9 Major depressive disorder, single episode, unspecified; D47.3 Essential (hemorrhagic) thrombocythemia; M54.5 Low back pain; E66.9 Obesity, unspecified; K21.9 Gastro-esophageal reflux disease without esophagitis; K44.9 Diaphragmatic hernia without obstruction or gangrene; R19.7 Diarrhea, unspecified; M79.7 Fibromyalgia; K75.89 Other specified inflammatory liver diseases; G89.18 Other acute postprocedural pain; T42.1X Poisoning by, adverse effect of and underdosing of iminostilbenes; Z79.899 Other long term (current) drug therapy; Z68.35 Body mass index [BMI] 35.0-35.9, adult; Z87.891 Personal history of nicotine dependence; Z79.891 Long term (current) use of opiate analgesic; Z79.1 Long term (current) use of non-steroidal anti-inflammatories (NSAID)

== ENCOUNTER 2017-05-17 12:38 | Day surgery (SDC) | payer BC, OTHER ==
[2017-05-11 15:02] VITALS: BMI 34.0
[~2017-05-17] VITALS: Ht 154.9 cm; Wt 81.8 kg
--- NOTE | 2017-05-17 07:16 | History and Physical ---
History & Physical Date May 17, 2017. Chief Complaint Patient presents a 72-year-old female with some ongoing painful to her left knee she has exam is that of a torn posterior horn medial meniscus plan for arthroscopy and partial medial meniscectomy History of Present Illness Ongoing pain. To her left knee with a exam is a torn posterior horn medial meniscus left knee plans for arthroscopy for partial medial meniscectomy left knee The patient is a 72 year old female with complaints of Past Medical/Surgical History Surgical Problems: (1) S/P TKR (total knee replacement) Additional History Hepatic Disease: No Endocrine Disorder: No Kidney Disease: No Hypertension: Yes Heart Disease: No Bleeding Tendencies: No Infectious Diseases: No Other: asthma Allergies Coded Allergies: Carbamazepine (Unverified Allergy, Mild, LIVER TOXICITY, 05/11/17) Iodine (Unverified Allergy, Mild, UNSTABLE VITALS, 05/11/17) Home Medications Scheduled Aspirin (Aspirin Ec), 81 MG PO QAM Bupropion Hcl (Wellbutrin Sr), 150 MG PO QAM Clonazepam (Klonopin), 1 MG PO HS Folic Acid (Folvite), 1 TAB PO QAM Hydroxyurea (Hydrea), 3 CAP PO 3XWK Hydroxyurea (Hydrea Cap), 2 CAP PO 4XWK Mometasone Furoate (Inhalation (Asmanex Hfa), 1 PUFF INH QAM Nebivolol HCl (Bystolic), 1 TAB PO QAM Omeprazole (Prilosec), 20 MG PO QAM Solifenacin (Vesicare), 5 MG PO QAM Tramadol (Ultram), 50 MG PO BID Scheduled PRN Acetaminophen (Tylenol), 1,000 MG PO Q6H PRN for Pain Albuterol Hfa (Ventolin Hfa), 2-4 PUFFS INH Q6H PRN for SOB/Wheezing Celecoxib (CeleBREX), 200 MG PO DAILY PRN for Pain Physical Examination Skin: warm/dry, no rash Eyes: normal inspection, EOMI, sclerae normal ENT: normal ENT inspection, pharynx normal Head: normocephalic, atraumatic Neck: supple, no adenopathy, trachea midline Respiratory/Chest: lungs clear, normal breath sounds, no respiratory distress Cardiovascular: regular rate, rhythm, no edema, no murmur Abdomen / GI: normal bowel sounds, non tender Back: normal inspection Extremities: + pertinent finding (painful medial joint line left knee with positive Izabel and circumduction findings noted) Diagnosis Patient presents with a torn medial meniscus left knee clinical exam is positive Izabel causes abduction circumduction findings as well as MRI conservative torn posterior horn medial meniscus Plan of Treatment Patient presents with ongoing complaints of pain about the knee left knee involving large muscle conservative therapy presents for arthroscopy arthroscopic partial medial meniscectomy.
[~2017-05-17 12:38] MED LIST changes: +ACET-1256 PO; -ACETAMINOPHEN 500 MG TAB PO SCH; +ASPI81TA28 PO; +ATROPINE SULFATE 0.1 MG/ML 5ML SYR IV PRN; -BUPIVACAINE 0.25% 30 ML VIAL ONE; -BUPIVACAINE 0.5 % 5 MG/1 ML PF 10ML VIAL ONE; -BUPIVACAINE LIPOSOME 266 MG, BUPIVACAINE/EPINEPHRINE INJ 50 ML, SODIUM CHLORIDE 0.9% PF... INFIL SCH; +BUPR150T7 PO; +BYS5 PO; -Bystolic PO; -CEFAZOLIN 2000 MG/60 ML D5W 60 ML IV SCH; +CEFAZOLIN 2000MG IV PUSH 15 ML IV SCH; +CLB/200 PO; +CLON1TAB3 PO; -CeleBREX 200 MG CAP PO SCH; -DEXAMETHASONE 4 MG TAB PO SCH; +EpHEDrine SULFATE INJ 50 MG/ML AMP IV PRN; +FENTANYL CITRATE INJ 50 MCG/1 ML 2 ML VIAL IV PRN; +FOLI1TAB8 PO; -GABAPENTIN 300 MG CAP PO SCH; +HYDR500C PO; +HYDR500C3 PO; +HYDROmorphone INJ 0.5 MG/0.5 ML SYR IV PRN; +LABETALOL HCL IV 5 MG/ML 20ML IV PRN; +MEPERIDINE HCL 25 MG/ML CARP IV PRN; +MOME16.7 INH; +ONDANSETRON INJ 2 MG/ML 2 ML VIAL IV PRN; -PATIENT'S HEIGHT AND/OR WEIGHT NEEDED SCH; +VNTHFA/IN INH; +VSC/5 PO; -[UNRECOGNIZED DRUG - CODE] PO
[2017-05-17 13:05] LABS: BASO % 0.4 %; BASO ABS # 0.02 K/uL (0-0.2); EOS % 0.6 %; EOS ABS # 0.03 K/uL (0-0.5); HEMATOCRIT 34.7 % (37-47); HEMOGLOBIN 11.9 g/dL (12.0-16.0); IG# 0.01 K/uL (0.00-0.02); LYMPH % 26.1 %; LYMPH ABS # 1.39 K/uL (1.2-3.4); MEAN CELL VOLUME 116.1 fL (80-100); MEAN CORPUSCULAR HEMOGLOBIN 39.8 pg (25-34); MEAN PLATELET VOLUME 9.1 fL (7.4-10.4); MONO % 5.8 %; MONO ABS # 0.31 K/uL (0.11-0.59); NEUT % 66.9 %; NEUT ABS # 3.56 K/uL (1.4-6.5); PLATELET COUNT 569 K/uL (130-400); RED CELL DISTRIBUTION WIDTH CV 14.4 % (11.5-14.5); RED CELL DISTRIBUTION WIDTH SD 59.1 fL (36.4-46.3); WHITE BLOOD COUNT 5.32 K/uL (4.8-10.8)
[2017-05-17 13:09] LABS: MEAN CORPUSCULAR HGB CONC 34.3 g/dl (32-36)
[2017-05-17 13:11] VITALS: BP 164/86; PULSE 95; TEMP 36.8; O2SAT 98; Ht 154.9 cm; Wt 81.8 kg
[2017-05-17] MEDS ORDERED: EpINEphrine HCL INJ 1 MG/ML 1ML SYRINGE ONE ×2 (14:05→14:06)
[2017-05-17] MEDS ORDERED: BUPIVACAINE/EPINEPHRINE 0.5% MPF 1:200,000 30 ML VIAL ONE (14:05)
[2017-05-17] MEDS ORDERED: BUPIVACAINE 0.5 % 5 MG/1 ML MPF 30ML VIAL ONE (14:05)
[2017-05-17] MEDS ORDERED: MIDAZOLAM HCL 1 MG/ML 2ML VIAL ONE (14:15)
[2017-05-17] MEDS ORDERED: FENTANYL CITRATE INJ 50 MCG/1 ML 2 ML VIAL ONE ×2 (14:15→15:39)
[2017-05-17] MEDS ORDERED: SODIUM CHLORIDE 0.9% 1000ML 1,000 ML IV SCH (14:34)
--- NOTE | 2017-05-17 14:36 | Discharge Instructions ---
Discharge Instructions Date of Service May 17, 2017. Visit Reason for Visit: Left Knee Other Meniscus Derangements, Unspecified Discharge Discharge Diagnosis / Problem: meniscus tear Discharge Goals Goal(s): Decrease discomfort, Improve function, Increase independence Activity Recommendations Activity Limitations: as noted below Weightbearing Status: Left weightbearing (as tolerated) Anesthesia . Post Anesthesia Instructions: If you have had General Anesthesia or IV Sedation: * Do not drive today. * Resume driving when surgeon permits. * Do not make important decisions or sign legal documents today. * Call surgeon for: 1. Temperature elevations greater than 101 degrees F. 2. Uncontrollable pain. 3. Excessive bleeding. 4. Persistent nausea and vomiting. 5. Medication intolerance (nausea, vomiting or rash). * For nausea and vomiting use only clear liquids such as: tea, soda, bouillon until nausea subsides, then gradually increase diet as tolerated. * If you have any concerns or questions, call your surgeon's office. If physician is unavailable and it is an emergency, call 911 or go to the nearest emergency room. . Instructions / Follow-Up Instructions / Follow-Up ACTIVITY RECOMMENDATIONS: * You may walk on the leg with or without crutches as comfort permits. * Bending of the knee should start at once. * Do not shower for 48 hours following surgery. SPECIAL CARE INSTRUCTIONS: * You may cleanse the skin adjacent to the small wounds with soap and water at the time of the first dressing change. * The application of an ice bag to the front and sides of the knee will decrease swelling and discomfort for the first 48 hours. * The small incisions may be sore and develop bruising. This bruising does not require any special care. SPECIAL PRECAUTIONS: * If you experience unusual pain unrelieved by prescriptions, temperature elevation (100 degrees F. or above) or progressive swelling or bleeding, you should contact our office at for further evaluation. * You may have been prescribed pain medication. If you experience nausea and/or fine skin rash, discontinue this medication and contact our office at for an alternate medication. DRESSING: * Dressing should be comfortable and absorb any leakage of fluid and/or blood. * The dressing may become moist or bloodstained. * Dressing may be removed _24 hours_ after surgery and bandaids placed over the small surgical incisions. If can be removed sooner if it becomes very soiled or loose. * Bandaids may be used over next several days as needed and can be discontinued when there is not further drainage from the wounds. FOLLOW UP VISIT: If appointment is not already scheduled: Please call [facility] to make a follow-up appointment for your surgery at . Diet Recommendations Recommended Home Diet: resume previous diet Pending Studies Studies pending at discharge: no Medical Emergencies . Who to Call and When: Medical Emergencies: If at any time you feel your situation is an emergency, please call 911 immediately. . Non-Emergent Contact Non-Emergency issues call your: Primary Care Provider, Surgeon . . "Provider Documentation" section prepared by Richard West. . [facility] Monitoring Program Search Results: patient reviewed within database, no issues identified
[2017-05-17] MEDS ORDERED: HYDR-5688 PO ×2 (14:38→14:51)
[2017-05-17] MEDS ORDERED: ONDANSETRON INJ 2 MG/ML 2 ML VIAL IV PRN (14:45)
[2017-05-17] MEDS ORDERED: HYDROCODONE/ACETAMIN 5/325MG TAB PO PRN ×2 (14:45)
[2017-05-17] MEDS ORDERED: LIDOCAINE HCL 2% 2 ML VIAL (20MG/ML) ONE (14:59)
[2017-05-17] MEDS ORDERED: PROPOFOL IV EMULSION 10 MG/ML 20 ML VIAL IV ONE (14:59)
[2017-05-17] MEDS ORDERED: ONDANSETRON INJ 2 MG/ML 2 ML VIAL ONE (14:59)
[2017-05-17] MEDS ORDERED: DEXAMETHASONE SOD INJ 4 MG/ML VIAL ONE (14:59)
[2017-05-17] MEDS ORDERED: KETOROLAC TROMETHAMINE 30 MG/ML VIAL ONE (15:13)
--- NOTE | 2017-05-17 15:16 | [facility] Post Operative Brief Note ---
Immediate Operative Summary Operative Date May 17, 2017. Pre-Operative Diagnosis torn medial meniscus left knee Post-Operative Diagnosis torn medial meniscus left knee for lateral meniscus grade 3 medial femoral condyle grade 3 patellofemoral Procedure(s) Performed Left Knee Arthroscopy with Partial Medial Menisectomy partial lateral meniscectomy chondroplasty Surgeon Dr. Jonh Cruz Civil Engineering Intern Surgeon(s) NA Estimated Blood Loss 2cc Findings Consistent with Post-Op Diagnosis Specimens none per surgeon Drains None Anesthesia Type General Complication(s) none Disposition Disposition: Recovery Room / PACU
--- NOTE | 2017-05-17 15:20 | [facility] Operative Report ---
Operative Report Operative Date May 17, 2017. Pre-Operative Diagnosis torn medial meniscus left knee Post-Operative Diagnosis torn medial meniscus left knee for lateral meniscus grade 3 medial femoral condyle grade 3 patellofemoral Procedure(s) Performed Left Knee Arthroscopy with Partial Medial Menisectomy partial lateral meniscectomy chondroplasty medial femoral condyle patellofemoral joint for grade [address] Jonh Cruz Sewing [employer] Supervisor Surgeon(s) NA Estimated Blood Loss 2cc Findings Patient presents with a painful left knee torn medial meniscus torn lateral meniscus grade 3 cartilage and globally medial femoral condyle grade 3 chondral changes patellofemoral joint Specimens none per surgeon Drains None Anesthesia Type General Complication(s) none Disposition Recovery Room / PACU Indications Patient presents after failing attempts at conservative management with ongoing pain and lateral left knee shows a complex bucket-handle tear of lateral meniscus she has a complex radial tear of the posterior horn of the medial meniscus underwent partial posterior horn medial and lateral meniscectomies for the above findings. 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 Lateral debris was removed chondroplasty for medial femoral condyle patellofemoral joint performed back to stable margin anterior posterior cruciate liters were visualized and probed noted to be intact the partial posterior horn medial lateral meniscectomies have informed operative [place] removed skin was closed with 4-0 nylon a sterile compressive dressing placed patient was taken to recovery in stable condition operative report dictated by Anthony pearl (were percent Marcaine with epinephrine was injected in the knee joint prior to closure skin portals I attest to the content of the Intraoperative Record and any orders documented therein. Any exceptions are noted below.
--- NOTE | 2017-05-17 16:09 | Anesthesiology Progress Note ---
Anesthesia Post Op Note Date & Time May 17, 2017 at 16:09 Vital Signs Pain Intensity: 0 Vital Signs Past 12 Hours Date Time Temp Pulse Resp B/P (MAP) Pulse Ox O2 Delivery O2 Flow Rate FiO2 05/17/17 16:00 36.5 78 16 153/87 95 Room Air 05/17/17 15:50 82 16 137/81 94 Room Air 05/17/17 15:40 89 16 142/91 100 Oxymask 10 05/17/17 15:30 80 16 146/77 98 Oxymask 10 05/17/17 15:20 36.0 85 16 145/95 99 Oxymask 10 05/17/17 13:11 36.8 95 20 164/86 (112) 98 Room Air Notes Mental Status: alert / awake / arousable, participated in evaluation Pt Amnestic to Procedure: Yes Nausea / Vomiting: adequately controlled Pain: adequately controlled Airway Patency, RR, SpO2: stable & adequate BP & HR: stable & adequate Hydration State: stable & adequate Neuraxial Anesthesia: was administered, sensory block is resolving Anesthetic Complications: no major complications apparent
[2017-05-17 16:14] VITALS: BP 166/74; PULSE 85; TEMP 36.6; O2SAT 92
[2017-05-17 16:55] VITALS: BP 149/67; PULSE 92; TEMP 37.1; O2SAT 96
== END 2017-05-17 17:20 | disposition home or self-care (01) ==
LOC: C.ACU 12:38
PROVIDERS: ATTEND Orthopaedic Surgery
DX: M23.222 Derangement of posterior horn of medial meniscus due to old tear or injury, left knee (principal); I10 Essential (primary) hypertension; D69.3 Immune thrombocytopenic purpura; Z79.82 Long term (current) use of aspirin

== ENCOUNTER → 2017-05-27 | Outpatient (CLI) | payer BC ==
[~2017-05-27] MED LIST changes: -ACET-1256 PO; -ATROPINE SULFATE 0.1 MG/ML 5ML SYR IV PRN; -CEFAZOLIN 2000MG IV PUSH 15 ML IV SCH; -EpHEDrine SULFATE INJ 50 MG/ML AMP IV PRN; -FENTANYL CITRATE INJ 50 MCG/1 ML 2 ML VIAL IV PRN; +HYDR-5688 PO; -HYDROmorphone INJ 0.5 MG/0.5 ML SYR IV PRN; -LABETALOL HCL IV 5 MG/ML 20ML IV PRN; -LACTATED RINGER'S 1000ML 1,000 ML IV SCH; -MEPERIDINE HCL 25 MG/ML CARP IV PRN; -ONDANSETRON INJ 2 MG/ML 2 ML VIAL IV PRN; -TRAM-10 PO
--- NOTE | 2017-05-27 14:29 | DIAGNOSTIC IMAGING REPORT ---
ULTRASOUND LEFT LOWER EXTREMITY VENOUS CLINICAL HISTORY: Left calf pain. COMPARISON STUDY: No priors. TECHNIQUE: Real-time, grayscale, and color Doppler sonography of the deep veins of the left lower extremity was performed from the inguinal crease to the calf. Compression and augmentation were utilized. FINDINGS: There is no sonographic evidence of deep venous thrombosis identified in the left lower extremity. The common femoral, superficial femoral, and popliteal veins are patent and normally compressible. The greater saphenous vein and the profunda femoris vein at the junction with the common femoral vein are clear. The visualized calf veins are patent. A complex popliteal cyst measures 4.8 x 1.4 x 3.0 cm. IMPRESSION: 1. There is no sonographic evidence of deep venous thrombosis identified in the left lower extremity. 2. Complex Buitrago's cyst. Electronically signed by: Natan Felix M.D. 05/27/2017 2:28 PM Dictated Date/Time: 05/27/2017 2:27 PM
== END | disposition home or self-care (01) ==
LOC: C.ULTRBC 13:47
PROVIDERS: ATTEND Orthopaedic Surgery
DX: M79.662 Pain in left lower leg (principal); M71.22 Synovial cyst of popliteal space [Baker], left knee